=== PATIENT | male | born 1945 | race Hispanic/Latino ===

== ENCOUNTER → 2018-08-21 | Day surgery (SDC) | payer OTHER ==
[2018-08-19 10:12] LABS: BASOPHILS % 0.4 % (0.0-1.0); EOSINOPHILS # (AUTO) 0.2 (0.0-0.4); EOSINOPHILS % 3.3 % (0.0-6.0); HEMATOCRIT 41.5 % (38.2-49.6); HEMOGLOBIN 14.1 g/dL (14.0-18.0); LYMPHOCYTES # (AUTO) 1.7 (1.0-3.2); LYMPHOCYTES % 23.6 % (18.0-39.1); MEAN CORPUSCULAR HEMOGLOBIN 28.8 pg (28-32); MEAN CORPUSCULAR VOLUME 84.7 fL (81-99); MONOCYTES # (AUTO) 0.6 (0.2-0.8); MONOCYTES % 8.6 % (4.4-11.3); NEUTROPHILS # (AUTO) 4.7 (2.1-6.9); NEUTROPHILS % 63.8 % (38.7-80.0); PLATELET COUNT 232 x10e3/uL (140-360); RED CELL DISTRIBUTION WIDTH 13.3 % (11.7-14.4)
--- NOTE | 2018-08-19 10:33 | Diagnostic Imaging Report ---
EXAMINATION: PA and lateral views of the chest. COMPARISON: None CLINICAL HISTORY: Preoperative evaluation for rotator cuff surgery DISCUSSION: Lines/tubes: None. Lungs: Elevation of the left hemidiaphragm with adjacent atelectasis. Otherwise lungs are clear. Pleura: No pleural effusion or pneumothorax. Heart and mediastinum: The cardiomediastinal silhouette is normal. Bones and soft tissues: No acute bony abnormalities. IMPRESSION: No acute cardiopulmonary abnormalities. Signed by: Dr. Bakari Langford M.D. on 08/19/2018 10:30 AM
[~2018-08-21] MED LIST: CEFAZOLIN SOD 2 GM/D5W 50ML 50 ML IV ONE; DEXAMETHASONE SOD PHOS INJ 4 MG/ML VIAL ONE; EPINEPHRINE HCL 1:1000 1ML 1 MG/ML AMP ONE; FENTANYL CITRATE/PF 100MCG/2 ML INJ ONE; GLYCOPYRROLATE INJ 1MG/ 5 ML SYR ONE; KETOROLAC TROMETHAMINE 30 MG/ML VIAL ONE; LIDOCAINE HCL 2% LOCAL INJ 5 ML SDV VIAL INJ ONE; METOPROLOL SUCC50 MG PO; MIDAZOLAM HCL 2 MG/2 ML VIAL ONE; NEOSTIGMINE 5 MG/5ML SYR ONE; ONDANSETRON HCL INJ 2MG/ML 2ML 2 MG/ML VIAL ONE; PROPOFOL IV EMULSION 10 MG/ML 20 ML VIAL ONE; ROCURONIUM BROMIDE 10 MG/ML 5ML VIAL ONE; ROPIVACAINE 0.5% 5 MG/ML 30 ML SDV ONE; SEVOFLURANE INHAL SOLN 250 ML PEN BTL ONE; SIMVASTATIN40 MG PO; XARELTO20 MG PO; [UNRECOGNIZED DRUG - OTHER] PO
--- OUTSIDE RECORDS SUMMARY | 2018-08-21 05:35 | XMS REPORT ---
Author Author [facility] Address Unknown Phone Unavailable Care Team Providers Care Assistant Account Manager Name Role Phone AV LINARES Unavailable Unavailable Problems This patient has no known problems. Allergies, Adverse Reactions, Alerts This patient has no known allergies or adverse reactions. Medications This patient has no known medications. Results Test Description Test Time Test Comments Text Results Atomic Results Result Comments CHEST 2 VIEWS 2018-08-19 10:29:00 [place] [address] Patient Name: ANNIKA ROLON JR MR #: [id number] : 1945 Age/Sex: 73/M Req #: [id number] Adm Physician: Ordered by: AV LINARES MD Report #: [id number] Location: OR Room/Bed: Procedure: [id number] DX/CHEST 2 VIEWS Exam Date: 08/19/18 Exam Time: 1010 REPORT STATUS: Signed EXAMINATION: PA and lateral views of the chest. COMPARISON: None CLINICAL HISTORY: Preoperative evaluation for rotator cuff surgery DISCUSSION: Lines/tubes: None. Lungs: Elevation of the left hemidiaphragm with adjacent atelectasis. Otherwise lungs are clear. Pleura: No pleural effusion or pneumothorax. Heart and mediastinum: The cardiomediastinal silhouette is normal. Bones and soft tissues: No acute bony abnormalities. IMPRESSION: No acute cardiopulmonary abnormalities. Signed by: Dr. Kishan Ding M.D. on 08/19/2018 10:30 AM Dictated By: KISHAN DING MD 1030 Transcribed By: PINKY on 08/19/18 1030 COPY TO: AV LINARES MD
[2018-08-21 10:30] VITALS: BP 171/86
--- NOTE | 2018-08-24 02:40 | Operative Report ---
DATE OF PROCEDURE: 08/21/2018 SURGEON: Aryan Stokes MD PREOPERATIVE DIAGNOSES: 1. Left large rotator cuff tear. 2. Left acromioclavicular joint arthrosis. POSTOPERATIVE DIAGNOSES: 1. Left massive chronic rotator cuff tear. 2. Left acromioclavicular joint arthrosis. 3. Left shoulder synovitis. 4. Left shoulder arthrofibrosis. PROCEDURE PERFORMED: The patient underwent a left shoulder examination under anesthesia, a left shoulder manipulation under anesthesia, a left shoulder arthroscopy, a left shoulder arthroscopic debridement of synovitis, a left shoulder arthroscopic debridement of a massive chronically torn and unfixable rotator cuff tear, a left shoulder chondroplasty of the humeral head and glenoid, a left shoulder subacromial decompression and acromioplasty, and a left shoulder arthroscopic distal clavicle resection. RELOCATION COORDINATOR: QUENTIN Riggs ANESTHESIA: Regional block and general anesthesia. IV FLUIDS: Per the Anesthesia record. BLOOD LOSS: Less than 5 mL. BRIEF DISCUSSION OF THE PATIENT'S OPERATIVE PROCEDURE: Mr. Owens was taken to the operating room and placed in supine position on the operating table. With induction of general anesthesia as well as endotracheal intubation, the patient's left upper extremity was examined under anesthesia. He was found to have a normal-appearing shoulder joint. There was no evidence of instability. However, forward flexion of the shoulder was limited to approximately a 145 degrees, and attempts at greater forward flexion and abduction were met with resistance within the shoulder joint. The shoulder was gently manipulated under anesthesia and fibrous bands were felt to give away, restoring full motion to the shoulder joint. The shoulder was then prepped and draped in the standard surgical fashion. Standard posterolateral and anterior port was created without difficulty. The scope was placed within the shoulder atraumatically and examination of the glenohumeral articulation demonstrated chondromalacia of both the glenoid and humeral surfaces. There was diffuse synovitis in the shoulder joint. There were no loose bodies within the shoulder. The biceps tendon was found to be ruptured and not contained within the shoulder joint. There was a massive rotator cuff tear with retraction of the supraspinatus and infraspinatus tendons beyond the glenoid. A shaver was placed in the shoulder joint and the synovitis was debrided. A grasper was then used to attempt to mobilize rotator cuff tissues. The shaver was then to the subacromial space. A lateral portal was created with an outside-in technique. An elevator was used to free the rotator cuff tissues. A grasper was then used to try to mobilize the rotator cuff tissue. The rotator cuff tissue could not be mobilized to its normal insertion site. The tissue was also found to be friable. Multiple attempts were performed to mobilize that tissue and it was unsuccessful. The tear was deemed unfixable. A shaver was used to provide a bursectomy. There was a markedly downward sloping acromion, nearly impinging upon the humeral head. A shaver was used to provide the patient an acromioplasty. The anterior portal was converted to the subacromial space and attention was then turned to the AC joint. The shaver was converted to the anterior portal and a 1 cm section of the distal clavicle was resected using the shaver. This was confirmed under fluoroscopic direct visualization. The shoulder was then saline. The arthroscopy portals were closed and sterile dressings were applied. The patient was provided with a sling, awakened, and taken to the Postanesthesia Care Unit in stable condition. MD LEANDER Salas/PK /[id number]
== END | disposition home or self-care (01) ==
LOC: OR 05:32
PROVIDERS: ATTEND Specialist
DX: M75.102 Unspecified rotator cuff tear or rupture of left shoulder, not specified as traumatic (principal); M65.812 Other synovitis and tenosynovitis, left shoulder; M19.012 Primary osteoarthritis, left shoulder; M24.612 Ankylosis, left shoulder; I12.9 Hypertensive chronic kidney disease with stage 1 through stage 4 chronic kidney disease, or unspecified chronic kidney disease; N18.9 Chronic kidney disease, unspecified; I25.10 Atherosclerotic heart disease of native coronary artery without angina pectoris; Z95.5 Presence of coronary angioplasty implant and graft; Z01.810 Encounter for preprocedural cardiovascular examination; Z01.812 Encounter for preprocedural laboratory examination; Z01.818 Encounter for other preprocedural examination; Z86.711 Personal history of pulmonary embolism; Z79.02 Long term (current) use of antithrombotics/antiplatelets
CPT/HCPCS: 23929; 29823; 29826; 36415; 71046; 85025; 93005; J0171; J0690; J1100; J1885; J2001; J2250; J2405; J2704; J2795; J3490